=== PATIENT | female | born 1985 | race African-American/Black ===

== ENCOUNTER 2024-01-10 11:27 | Inpatient (IN) | payer OTHER ==
[2024-01-10 11:46] VITALS: BMI 43.8
[2024-01-10] MEDS ORDERED: guaiFENesin 600 MG TABLET.ER (FP) PO PRN (12:09)
[2024-01-10] MEDS ORDERED: BENZOCAINE/MENTHOL (CHLORASEPTIC ) LOZENGE MM PRN (12:09)
[2024-01-10] MEDS ORDERED: hydrOXYzine PAMOATE 25 MG CAPSULE (FP) PO PRN (12:09)
[2024-01-10] MEDS ORDERED: NICOTINE POLACRILEX 4 MG GUM BUC PRN (12:09)
[2024-01-10] MEDS ORDERED: NICOTINE POLACRILEX 4 MG LOZENGE BC PRN (12:09)
[2024-01-10] MEDS ORDERED: MAGNESIUM HYDROX 2400MG/30ML ORAL SUSPENSION 30 ML CUP PO PRN (12:09)
[2024-01-10] MEDS ORDERED: IBUPROFEN 400 MG TABLET (FP) PO PRN (12:09)
[2024-01-10] MEDS ORDERED: NALOXONE HCL 0.4 MG/ML VIAL IM PRN (12:09)
[2024-01-10] MEDS ORDERED: ACETAMINOPHEN 325 MG TABLET (FP) PO PRN (12:09)
[2024-01-10] MEDS ORDERED: POLYETHYLENE GLYCOL (HEALTHYLAX) 3350 17 GM PACKET PO PRN (12:09)
[2024-01-10] MEDS ORDERED: ONDANSETRON *ODT* 4 MG TABLET SL PRN (12:09)
[2024-01-10] MEDS ORDERED: LOPERAMIDE HCL 2 MG CAPSULE PO PRN (12:09)
[2024-01-10] MEDS ORDERED: BENZONATATE 200 MG CAPSULE PO PRN (12:09)
[2024-01-10] MEDS ORDERED: BISMUTH SUBSALICYLATE 524 MG/30 ML PO PRN (12:09)
[2024-01-10] MEDS ORDERED: NALOXONE (NARCAN) HCL 4 MG/0.1 ML SPRAY NS PRN (12:09)
[2024-01-10] MEDS ORDERED: DICYCLOMINE HCL 10 MG CAPSULE PO PRN (12:09)
[2024-01-10] MEDS ORDERED: ALBUTEROL SO4 HFA INHALER IH PRN (12:12)
[2024-01-10] MEDS: NICOTINE 21 MG/24 HOURS TOPICAL PATCH TD SCH (13:44)
[2024-01-10] MEDS ORDERED: cloNIDine HCL 0.1 MG TABLET PO PRN (14:16)
[2024-01-10] MEDS ORDERED: ALBUTEROL SO4 0.083% IH SOL 2.5 MG/3 ML VIAL.NEB. NEB PRN (14:31)
[2024-01-10] MEDS: NALTREXONE HCL 50 MG TABLET PO SCH (15:24)
[2024-01-10] MEDS: diazePAM 5 MG TABLET PO SCH (17:37)
[2024-01-10] MEDS: MAG HYDROX/AL HYDROX/SIMETH 30 ML UNIT-DOSE CUP PO PRN (19:04)
[2024-01-10] MEDS: THIAMINE 100 MG TABLET PO SCH (22:32)
[2024-01-10] MEDS: MELATONIN 5 MG TABLETS PO SCH (22:32)
[2024-01-10] MEDS: GABAPENTIN 300 MG CAPSULE PO SCH (22:33)
[2024-01-11] MEDS: IBUPROFEN 600 MG TABLET (FP) PO PRN (10:17)
[2024-01-11] MEDS: BENZTROPINE MESYLATE 1 MG TABLET PO SCH (10:18)
[2024-01-11] MEDS: PRENATAL VITAMINS W/ FOLIC ACID TABLET (FP) PO SCH (10:28)
[2024-01-11] MEDS: hydrOXYzine PAMOATE 50 MG CAPSULE (FP) PO PRN (17:14)
[2024-01-11 17:42] LABS: HEMATOCRIT 35.5 % (32.4-45.2); HEMOGLOBIN 11.3 GM/dL (10.7-15.3); MCH 25.9 pg (25.7-33.7); MCHC 31.9 g/dl (32.0-36.0); MEAN CELL VOLUME 81.2 fl (80-96); PLATELET COUNT 320 10^3/uL (134-434); RBC 4.37 M/mm3 (3.60-5.2); RDW 16.5 % (11.6-15.6); WHITE BLOOD COUNT 7.3 K/mm3 (4.0-10.0)
[2024-01-11] MEDS: METHOCARBAMOL 500 MG TABLET PO PRN (22:38)
[2024-01-11] MEDS: HALOPERIDOL 5 MG TABLET PO SCH (22:40)
[2024-01-12] MEDS: diazePAM 5 MG TABLET PO SCH (06:17)
[2024-01-12] MEDS: LACTULOSE 20 GM/30 ML UDC (FOR ORAL USE ONLY) PO SCH (17:37)
[2024-01-12] MEDS: diazePAM 5 MG TABLET PO PRN (17:37)
[2024-01-13] MEDS: diazePAM 5 MG TABLET PO SCH (06:06)
[2024-01-14] MEDS: diazePAM 5 MG TABLET PO ONE (05:40)
[2024-01-14 12:52] VITALS: BP 121/76; PULSE 87; RESP 16; TEMP 97.1
== END 2024-01-14 12:45 | disposition home or self-care (01) | DRG 774 ==
LOC: YASAS 11:27 → Y6N 13:16
PROVIDERS: ADMIT Allergy & Immunology; ATTEND Surgery
PROC: HZ2ZZZZ Detoxification Services for Substance Abuse Treatment (ICD-10-PCS; principal; 2024-01-10)
DX: F10.230 Alcohol dependence with withdrawal, uncomplicated (principal); F14.20 Cocaine dependence, uncomplicated; F17.213 Nicotine dependence, cigarettes, with withdrawal; F20.0 Paranoid schizophrenia; F19.282 Other psychoactive substance dependence with psychoactive substance-induced sleep disorder; G25.81 Restless legs syndrome; J45.20 Mild intermittent asthma, uncomplicated; M54.50 Low back pain, unspecified; G89.29 Other chronic pain; R03.0 Elevated blood-pressure reading, without diagnosis of hypertension; R79.89 Other specified abnormal findings of blood chemistry
CPT/HCPCS: 36415; 80305; 81025; 82140; 83036; 85027; 86780; 93005; 93010

== ENCOUNTER 2024-02-13 14:57 | Inpatient (IN) | payer OTHER ==
[2024-02-13 17:15] VITALS: BMI 44.4
[2024-02-13] MEDS ORDERED: POLYETHYLENE GLYCOL (HEALTHYLAX) 3350 17 GM PACKET PO PRN (18:06)
[2024-02-13] MEDS ORDERED: BENZONATATE 200 MG CAPSULE PO PRN (18:06)
[2024-02-13] MEDS ORDERED: BENZOCAINE/MENTHOL (CHLORASEPTIC ) LOZENGE MM PRN (18:06)
[2024-02-13] MEDS ORDERED: IBUPROFEN 400 MG TABLET (FP) PO PRN (18:06)
[2024-02-13] MEDS ORDERED: NALOXONE HCL 0.4 MG/ML VIAL IM PRN (18:06)
[2024-02-13] MEDS ORDERED: guaiFENesin 600 MG TABLET.ER (FP) PO PRN (18:06)
[2024-02-13] MEDS ORDERED: LOPERAMIDE HCL 2 MG CAPSULE PO PRN (18:06)
[2024-02-13] MEDS ORDERED: ONDANSETRON *ODT* 4 MG TABLET SL PRN (18:06)
[2024-02-13] MEDS ORDERED: BISMUTH SUBSALICYLATE 524 MG/30 ML PO PRN (18:06)
[2024-02-13] MEDS ORDERED: NALOXONE (NARCAN) HCL 4 MG/0.1 ML SPRAY NS PRN (18:06)
[2024-02-13] MEDS ORDERED: DICYCLOMINE HCL 10 MG CAPSULE PO PRN (18:06)
[2024-02-13] MEDS ORDERED: MAGNESIUM HYDROX 2400MG/30ML ORAL SUSPENSION 30 ML CUP PO PRN (18:06)
[2024-02-13] MEDS ORDERED: MAG HYDROX/AL HYDROX/SIMETH 30 ML UNIT-DOSE CUP ONE (18:28)
[2024-02-13] MEDS ORDERED: IBUPROFEN 600 MG TABLET (FP) PO ONE (18:28)
[2024-02-13] MEDS: IBUPROFEN 600 MG TABLET (FP) PO PRN (18:31)
[2024-02-13] MEDS: MAG HYDROX/AL HYDROX/SIMETH 30 ML UNIT-DOSE CUP PO PRN (18:31)
[2024-02-13] MEDS ORDERED: ALBUTEROL SO4 HFA INHALER IH PRN (19:15)
[2024-02-13] MEDS: cloNIDine HCL 0.1 MG TABLET PO PRN (20:05)
[2024-02-13] MEDS: MELATONIN 5 MG TABLETS PO SCH (22:33)
[2024-02-13] MEDS: THIAMINE 100 MG TABLET PO SCH (22:33)
[2024-02-14] MEDS: PRENATAL VITAMINS W/ FOLIC ACID TABLET (FP) PO SCH (10:03)
[2024-02-14] MEDS: METHOCARBAMOL 500 MG TABLET PO PRN (11:02)
[2024-02-14] MEDS: HALOPERIDOL 5 MG TABLET PO SCH (11:02)
[2024-02-14] MEDS: diazePAM 5 MG TABLET PO SCH (11:02)
[2024-02-14] MEDS: BENZTROPINE MESYLATE 1 MG TABLET PO SCH (11:03)
[2024-02-14 11:33] LABS: CHLORIDE 105 mmol/L (98-107); POTASSIUM 4.4 mmol/L (3.5-5.1); SODIUM 137 mmol/L (136-145)
[2024-02-14 11:37] LABS: HEMATOCRIT 33.7 % (32.4-45.2); HEMOGLOBIN 10.9 GM/dL (10.7-15.3); MCH 26.6 pg (25.7-33.7); MCHC 32.3 g/dl (32.0-36.0); MEAN CELL VOLUME 82.2 fl (80-96); MEAN PLT VOLUME 8.8 fl (7.5-11.1); PLATELET COUNT 339 10^3/uL (134-434); RDW 17.1 % (11.6-15.6); WHITE BLOOD COUNT 7.2 K/mm3 (4.0-10.0)
[2024-02-14 11:38] LABS: ANION GAP 5 mmol/L (4-13); BLOOD UREA NITROGEN 11.8 mg/dL (7-18); CALCIUM 8.5 mg/dL (8.5-10.1); CO2 27 mmol/L (21-32); GLUCOSE,RANDOM 95 mg/dL (74-106)
[2024-02-14 11:40] LABS: CREATININE 0.8 mg/dL (0.55-1.3); SGOT/AST 10 U/L (15-37); SGPT/ALT 16 U/L (13-61)
[2024-02-14 11:41] LABS: BILIRUBIN,TOTAL 0.4 mg/dL (0.2-1); TOT PROT 6.1 g/dl (6.4-8.2)
[2024-02-14 11:43] LABS: ALK PHOS 85 U/L (45-117)
[2024-02-14] MEDS: GABAPENTIN 300 MG CAPSULE PO SCH (13:25)
[2024-02-14] MEDS: traZODone HCL 50 MG TABLET (FP) PO SCH (22:38)
[2024-02-15] MEDS: ACETAMINOPHEN 325 MG TABLET (FP) PO PRN (22:32)
[2024-02-16] MEDS: diazePAM 5 MG TABLET PO SCH (05:54)
[2024-02-16] MEDS: diazePAM 5 MG TABLET PO PRN (09:24)
[2024-02-16] MEDS: hydrOXYzine PAMOATE 25 MG CAPSULE (FP) PO PRN (23:46)
[2024-02-17] MEDS: diazePAM 5 MG TABLET PO SCH (05:59)
[2024-02-17 21:09] VITALS: BP 133/71; PULSE 84; RESP 19; TEMP 98.2
[2024-02-18] MEDS: diazePAM 5 MG TABLET PO ONE (06:04)
== END 2024-02-18 06:00 | disposition left against medical advice (07) | DRG 774 ==
LOC: YASAS 14:57 → Y3N 18:20
PROVIDERS: ADMIT Allergy & Immunology; ATTEND Surgery
PROC: HZ2ZZZZ Detoxification Services for Substance Abuse Treatment (ICD-10-PCS; principal; 2024-02-13)
DX: F10.230 Alcohol dependence with withdrawal, uncomplicated (principal); F14.20 Cocaine dependence, uncomplicated; F17.213 Nicotine dependence, cigarettes, with withdrawal; F20.9 Schizophrenia, unspecified; F19.94 Other psychoactive substance use, unspecified with psychoactive substance-induced mood disorder; R45.6 Violent behavior; F91.8 Other conduct disorders; G47.00 Insomnia, unspecified; G25.81 Restless legs syndrome; J45.20 Mild intermittent asthma, uncomplicated; K21.9 Gastro-esophageal reflux disease without esophagitis; Z87.42 Personal history of other diseases of the female genital tract; Z91.148 Patient's other noncompliance with medication regimen for other reason; Z56.0 Unemployment, unspecified; Z59.00 Homelessness unspecified
CPT/HCPCS: 36415; 80053; 80305; 80307; 81025; 85027; 86780; 93005; 93010